=== PATIENT | female | born 2000 | race Caucasian/White ===

== ENCOUNTER 2022-04-18 23:05 | Emergency (ER) | payer BC, SELFPAY ==
[2022-04-18 23:13] VITALS: BP 138/98; PULSE 134; RESP 18; TEMP 36.6; O2SAT 100
--- NOTE | 2022-04-18 23:19 | PC.NURSE ---
Pt denies all SI/HI thoughts or statements. Low Risk per [facility] and per EDP Viet K, pt does not require sitter. Parents present in room with pt at this time. Plan is to obtain labwork and call crisis for assessment.
--- NOTE | 2022-04-18 23:20 | ED.PSYCH ---
HPI - Psych General Chief Complaint: Psychiatric Symptoms Stated Complaint: SI, +ETOH Time Seen by Provider: 04/18/22 23:08 History of Present Illness HPI Narrative: 22-year-old female history of depression presents to the emergency room accompanied by law enforcement for psych evaluation. According to the patient, she had several drinks and drove home. Patient was pulled over by local law enforcement and found to have a breath alcohol level of 1.9. Patient states that while she was in police custody, she was making statements such as she was depressed and did not think she could go on any further. Patient states that she did not make any specific threats toward her life or other people. Presently patient denies SI or HI. Patient is alert and oriented x4. Patient is not currently receiving any treatment for depression. Review of Systems Review of Systems: CONSTITUTIONAL: Denies fever, chills, or sweats. EYES: Denies visual changes, redness, or discharge. ENT: Denies rhinorrhea, congestion, sore throat, or otalgia. CARDIOVASCULAR: Denies chest pain, palpitations, or edema. RESPIRATORY: Denies cough or dyspnea. GASTROINTESTINAL: Denies abdominal pain, nausea, vomiting, or diarrhea. GENITOURINARY: Denies dysuria or hematuria. SKIN: Denies rash or itching. MUSCULOSKELETAL: Denies back pain, joint pain, or myalgia. NEUROLOGIC: Denies headache, numbness, dizziness, or weakness. PSYCHIATRIC: Reports depression. Exam Narrative: GENERAL: Well-appearing, well-nourished, no physical limitations, and in no acute distress. HEAD: Normocephalic, atraumatic. EYES: Conjunctivae normal, PERRLA and EOMI. CHEST: Clear to auscultation. No respiratory distress. No wheezes rales or rhonchi. HEART: Regular rate and rhythm. No murmur heard. Normal peripheral pulses. EXTREMITIES: Normal range of motion. No edema. No clubbing or cyanosis SKIN: Warm, dry, no rash. No noted wounds NEURO: No focal deficits. Alert and oriented x3. MAEW. CN's II-XI intact bilaterally, normal gait PSYCH: Cooperative. Normal mood and affect. Course Course Emergency Course: Elevated TSH. Patient is aware. Admits to being noncompliant with her Synthroid. 0200: Alcohol level is 47. Patient is medically cleared. Crisis has been called for evaluation. Vital Signs Vital signs: Vital Signs Temperature 36.6 C 04/18/22 23:13 Pulse Rate 134 H 04/18/22 23:13 Respiratory Rate 18 04/18/22 23:13 Blood Pressure 138/98 H 04/18/22 23:13 Pulse Oximetry 100 04/18/22 23:13 Oxygen Delivery Room Air 04/18/22 23:13 Temperature 36.6 C 04/18/22 23:13 Pulse Rate 134 H 04/18/22 23:13 Respiratory Rate 18 04/18/22 23:13 Blood Pressure 138/98 H 04/18/22 23:13 Pulse Oximetry 100 04/18/22 23:13 Oxygen Delivery Room Air 04/18/22 23:13 MDM - Psych Lab Data Result diagrams: 04/18/22 23:25 04/18/22 23:25 Labs: Lab Results 04/18/22 04/18/22 04/18/22 Range/Units 23:25 23:25 23:25 WBC 11.1 H (4.5-10.0) K/mm3 RBC 5.22 (4.2-5.4) M/mm3 Hgb 15.1 H (12.0-15.0) g/dL Hct 47.2 H (37.0-47.0) % MCV 90.4 (80-100) fl MCH 28.9 (26-34) pg MCHC 32.0 (32-36) g/dl RDW 14.5 (11.5-14.5) % Plt Count 490 H (150-375) k/mm3 MPV 9.6 (7.4-10.4) fl Immature Gran % (Auto) 0.7 H (0-0.5) % Neut % (Auto) 57.2 (45.5-73.1) % Lymph % (Auto) 33.2 (18.3-44.2) % [place] % (Auto) 7.4 (2.6-8.5) % Eos % (Auto) 0.8 (0-4.4) % Baso % (Auto) 0.7 (0.2-1.2) % Lymph # (Auto) 3.70 H (0.9-3.2) K/mm3 [place] # (Auto) 0.8 H (0.1-0.6) K/mm3 Eos # (Auto) 0.1 (0-0.3) K/mm3 Baso # (Auto) 0.1 (0.0-0.1) K/mm3 Abs Immat Gran (auto) 0.08 H (0.00-0.031) K/mm3 Absolute Neuts (auto) 6.4 (1.3-6.7) K/mm3 Absolute Nucleated RBC 0.0 (0.0-0.012) K/mm3 Nucleated RBC % 0.0 (0.0-0.2) % Sodium 146 H (137-145) mmol/L Potassium 4.3 (3.4-5.0) mmol/L Chloride 108 H
--- NOTE | 2022-04-18 23:25 | PC.NURSE ---
Pt denies thoughts of SI. Reports feels depressed but has no SI thoughts.
[2022-04-18 23:32] LABS: Basophils Absolute Auto 0.1 K/mm3 (0.0-0.1); Basophils Percent Auto 0.7 % (0.2-1.2); Eosinophils Absolute Auto 0.1 K/mm3 (0-0.3); Eosinophils Percent Auto 0.8 % (0-4.4); Hematocrit 47.2 % (37.0-47.0); Hemoglobin 15.1 g/dL (12.0-15.0); Immature Granulocyte Absolute 0.08 K/mm3 (0.00-0.031); Immature Granulocyte Percent A 0.7 % (0-0.5); Lymphocytes Percent Auto 33.2 % (18.3-44.2); Mean Corpuscular Hemoglobin 28.9 pg (26-34); Mean Corpuscular Volume 90.4 fl (80-100); Mean Platelet Volume 9.6 fl (7.4-10.4); Monocytes Absolute Auto 0.8 K/mm3 (0.1-0.6); Monocytes Percent Auto 7.4 % (2.6-8.5); Neutrophils Absolute Auto 6.4 K/mm3 (1.3-6.7); Neutrophils Percent Auto 57.2 % (45.5-73.1); Platelet Count Result 490 k/mm3 (150-375); Red Blood Count 5.22 M/mm3 (4.2-5.4); Red Cell Distribution Width 14.5 % (11.5-14.5); White Blood Count 11.1 K/mm3 (4.5-10.0)
[2022-04-18 23:46] LABS: Anion Gap 14 mmol/L (8-16); Blood Urea Nitrogen 11 mg/dL (7-17); Calcium 9.3 mg/dL (8.4-10.2); Carbon Dioxide 24 mmol/L (22-30); Chloride 108 mmol/L (98-107); Estimated CRCL calculation 102 ml/min; Estimated Glomerular Filt Rate > 60; Glucose 96 mg/dL (65-110); Potassium 4.3 mmol/L (3.4-5.0); Sodium 146 mmol/L (137-145)
[2022-04-18 23:55] LABS: Acetaminophen < 10 ug/mL (10-30); Ethanol 127 mg/dL (<10); Salicylate < 1.0 mg/dL (2-20)
[2022-04-19 00:02] LABS: Add Urine Microscopic? YES; Appearance Urine Cloudy (Clear); Bacteria Urine Trace /hpf; Bilirubin Urine Negative (Negative); Blood Urine 1+ (Negative); Color Urine Yellow (Yellow); Glucose Urine UA Negative (Negative); Ketones Urine Negative (Negative); Leukocyte Esterase Ur Negative LEU/UL (Negative); Mucus Urine Rare /lpf; Nitrate Urine Negative (Negative); Protein Urine Negative (Negative); Specific Grav Ur 1.006 (1.001-1.035); Squamous Epithelial Cell Urine Many /hpf (Few); Urobilinogen Urine Negative mg/dL (<2.0); WBC Urine 0-3 /hpf
--- NOTE | 2022-04-19 00:03 | PC.NURSE ---
Blood alcohol to be rechecked at 0130 prior to contacting Crisis. Pt and family updated. Verbalizes understanding
[2022-04-19 00:06] LABS: Amphetamine Screen Urine Negative (Negative); Barbiturate Screen Urine Negative (Negative); Benzodiazepines Screen Urine Negative (Negative); Cannabinoid Screen Urine Positive (Negative); Cocaine Screen Urine Negative (Negative); Methadone Screen Urine Negative (Negative); Opiate Screen Urine Negative (Negative); Phencyclidine Screen Urine Negative (Negative)
[2022-04-19 00:08] LABS: SARS-CoV-2 RNA PCR Negative
[2022-04-19 02:01] LABS: Ethanol 47 mg/dL (<10)
--- NOTE | 2022-04-19 02:03 | PC.NURSE ---
Called [facility] and will not accept pt for referral due to pt having private insurance.
--- NOTE | 2022-04-19 02:06 | PC.NURSE ---
Left message on Crisis phone for call back about referral
--- NOTE | 2022-04-19 02:13 | PC.NURSE ---
Received a call back from Crisis and will send someone to eval pt
[2022-04-19 04:19] VITALS: BP 128/83; PULSE 94; RESP 16; O2SAT 100
== END 2022-04-19 04:21 | disposition home or self-care (01) ==
PROVIDERS: Emergency Provider Nurse Practitioner Family
DX: F10.120 Alcohol abuse with intoxication, uncomplicated (principal); F32.A Depression, unspecified; R94.6 Abnormal results of thyroid function studies; Y90.2 Blood alcohol level of 40-59 mg/100 ml; Z91.14 Patient's other noncompliance with medication regimen; Z20.822 Contact with and (suspected) exposure to COVID-19
CPT/HCPCS: 36415; 80048; 80307; 81001; 84443; 85025; 99284; C9803; U0003; U0005